=== PATIENT | male | born 1990 | race American Indian/Alaskan Native ===

== ENCOUNTER 2017-09-16 02:57 | Emergency (ER) | payer SELFPAY ==
--- NOTE | 2017-09-16 03:11 | ED PDOC ---
HPI: General Adult Time Seen by Provider: 09/16/17 03:09 Chief Complaint (Nursing): Medical Clearance Chief Complaint (Provider): clearance for incarceration History Per: Patient, Other (chief talent officer at bedside with patient) Additional Complaint(s): 27 y/o M presents for medical and psychiatric clearance prior to incarceration. Patient arrives in police custody and is currently under arrest. Patient has slight headache and has abrasion to left hand. He denies any other complaints at this time. Tetanus up to date. PMD: none Past Medical History Reviewed: Historical Data, Nursing Documentation, Vital Signs Vital Signs: Last Vital Signs Temp 98.7 F 09/16/17 03:06 Pulse 109 H 09/16/17 03:06 Resp 18 09/16/17 03:06 BP 139/89 09/16/17 03:06 Pulse Ox 100 09/16/17 03:06 - Medical History PMH: No Chronic Diseases - Surgical History Surgical History: No Surg Hx - Family History Family History: States: No Known Family Hx - Living Arrangements Living Arrangements: With Family - Social History Alcohol: Social - Allergies Allergies/Adverse Reactions: Allergies Allergy/AdvReac Type Severity Reaction Status Date / Time pollen extracts Allergy Mild watery eyes Verified 09/16/17 03:11 Review of Systems ROS Statement: Except As Marked, All Systems Reviewed And Found Negative Musculoskeletal: Positive for: Other (abrasion to left hand) Neurological: Positive for: Headache (mild) Physical Exam - Reviewed Nursing Documentation Reviewed: Yes Vital Signs Reviewed: Yes - Physical Exam Appears: Positive for: Well Skin: Negative for: Rash Eye Exam: Positive for: Normal appearance Cardiovascular/Chest: Positive for: Regular Rate, Rhythm Respiratory: Positive for: Normal Breath Sounds Extremity: Positive for: Normal ROM, Other (superficial abrasion left 5th distal metacarpal, full rom of all digits of left hand) Neurologic/Psych: Positive for: Alert, Oriented, Gait (steady) - ECG O2 Sat by Pulse Oximetry: 100 Pulse Ox Interpretation: Normal Medical Decision Making Medical Decision Makin27 y/o M here for medical and psychiatric clearance. Plan: Crisis eval PO tyenol given for headache As per crisis counselor and psychiatrist carbonation equipment tender Dr. Armando, patient does not meet criteria for admission and is stable for discharge. Abrasion to left hand was cleansed with normal saline and Betadine, bacitracin and gauze wrap applied. Patient is medically stable for incarceration and discharge from ED with police inspector. Disposition - Clinical Impression Clinical Impression: Hand abrasion, Adjustment disorder - Patient ED Disposition Is Patient to be Admitted: No - Disposition Referrals: [facility] [Outside] Disposition: Routine/Home Disposition Time: 03:21 Condition: STABLE Additional Instructions: PATIENT IS MEDICALLY AND PSYCHIATRICALLY STABLE FOR INCARCERATION. Instructions: General (DC), Skin Abrasions, Adjustment Disorder Forms: [employer] (E[place]ian)
[2017-09-16 03:36] VITALS: BP 128/83; PULSE 83; TEMP 98.2
[2017-09-16 04:03] VITALS: RESP 18; O2SAT 98
== END 2017-09-16 04:03 ==
LOC: H.ER 02:57
DX: S60.512A Abrasion of left hand, initial encounter (principal); Y92.89 Other specified places as the place of occurrence of the external cause; F43.20 Adjustment disorder, unspecified